=== PATIENT | female | born 1960 | race Caucasian/White ===

== ENCOUNTER 2020-03-27 14:21 | Emergency (ER) | payer OTHER ==
[~2020-03-27] VITALS: Ht 165.1 cm; Wt 83.9 kg
[~2020-03-27 14:21] MED LIST: ACYC400; Ambien10 MG PO; Antivert25 MG PO; LOMAIRA8 MG PO; PSEU120ER PO; THYR60; TOPI100; Vistaril50 MG PO
[2020-03-27] MEDS ORDERED: ZOLPIDEM TART12.5 MG PO (15:07)
[2020-03-27] MEDS ORDERED: EUTHYROX50 MC1 PO (15:33)
[2020-03-27] MEDS ORDERED: PROG100 PO (15:33)
[2020-03-27] MEDS ORDERED: Aspir 8181 MG PO (16:28)
[2020-03-27] MEDS ORDERED: VALA500 PO (16:28)
[2020-03-27 16:50] LABS: International Normalized Ratio 1.01; Prothrombin Time Results 10.8 Sec (9.7-11.5)
[2020-03-27] MEDS ORDERED: XARELTO20 MG PO (17:22)
== END 2020-03-27 17:48 | disposition home or self-care (01) ==
LOC: ER 14:21
PROVIDERS: Physician Assistant
DX: I26.99 Other pulmonary embolism without acute cor pulmonale (principal); I82.401 Acute embolism and thrombosis of unspecified deep veins of right lower extremity; Z88.0 Allergy status to penicillin; Z88.8 Allergy status to other drugs, medicaments and biological substances; Z88.6 Allergy status to analgesic agent; Z86.73 Personal history of transient ischemic attack (TIA), and cerebral infarction without residual deficits
CPT/HCPCS: 36415; 71260; 83880; 84484; 85610; 85730; 93971; 99285-25; Q9967

== ENCOUNTER 2020-05-10 16:03 | Emergency (ER) | payer OTHER ==
[~2020-05-10] VITALS: Ht 165.1 cm; Wt 81.7 kg
[~2020-05-10 16:03] MED LIST changes: +Aspir 8181 MG PO; +EUTHYROX50 MC1 PO; +PROG100 PO; +VALA500 PO; +XARELTO20 MG PO; +ZOLPIDEM TART12.5 MG PO
[2020-05-10] MEDS ORDERED: XARELTO20 MG PO (16:21)
[2020-05-10 16:50] LABS: BASOPHILS ABSOLUTE AUTO 0.02 K/mm3 (0.00-0.23); BASOPHILS PERCENT AUTO 0 % (0-2); EOSINOPHILS ABSOLUTE AUTO 0.03 K/mm3 (0.00-0.68); EOSINOPHILS PERCENT AUTO 0 % (0-6); Hematocrit 45.3 % (33.0-51.0); Hemoglobin 14.8 g/dL (11.5-16.0); IMMATURE GRAN ABSOLUTE AUTO 0.02 K/mm3 (0.00-0.10); IMMATURE GRAN PERCENT AUTO 0 % (0-1); LYMPHOCYTES ABSOLUTE AUTO 1.79 K/mm3 (0.84-5.20); LYMPHOCYTES PERCENT AUTO 22 % (21-46); MONOCYTES ABSOLUTE AUTO 0.59 K/mm3 (0.16-1.47); MONOCYTES PERCENT AUTO 7 % (4-13); Mean Corpuscular HGB 32.6 pg (26.0-34.0); Mean Corpuscular HGB Conc 32.7 g/dL (31.5-36.5); Mean Corpuscular Volume 100 fL (80-100); Mean Platelet Volume 9.3 fL (9.1-12.4); NEUTROPHILS ABSOLUTE AUTO 5.59 K/mm3 (1.96-9.15); NEUTROPHILS PERCENT AUTO 70 % (41-73); Platelet Count 253 K/mm3 (150-400); RDW Coefficient Variation 12.3 % (11.7-14.2); RDW Standard Deviation 45.4 fL (35.1-46.3); Red Blood Cell Count 4.54 M/mm3 (3.80-5.20); White Blood Cell Count 8.04 K/mm3 (4.00-11.30)
[2020-05-10 17:11] LABS: Alanine Aminotransfer (ALT/SGP 25 U/L (12-78); Albumin/Globulin Ratio 1.1 (0.8-1.8); Alk Phos 81 U/L (50-136); Anion Gap 6 mmol/L (6-16); Aspartate Aminotrans (AST/SGOT 12 U/L (12-37); Bilirubin, Total 0.5 mg/dL (0.1-1.0); Blood Urea Nitrogen 17 mg/dL (8-24); Bun/Creatinine Ratio 24.8 (12.0-20.0); CO2, Blood 26 mmol/L (21-32); Calcium, Blood 9.3 mg/dL (8.5-10.1); Chloride, Blood 105 mmol/L (98-108); Creatinine, Blood 0.69 mg/dL (0.40-1.00); Globulin, Blood 3.5 g/dL (2.2-4.0); Glomerular Filtration Rate >60 (60-); Glucose, Blood 110 mg/dL (70-99); Potassium, Blood 3.8 mmol/L (3.5-5.5); Sodium, Blood 137 mmol/L (136-145); Total Protein, Blood 7.5 g/dL (6.4-8.2); Troponin I <0.015 ng/mL (0.000-0.040)
== END 2020-05-10 19:13 | disposition home or self-care (01) ==
LOC: ER 16:03
PROVIDERS: Physician Assistant
DX: R07.9 Chest pain, unspecified (principal); R06.00 Dyspnea, unspecified; Z86.711 Personal history of pulmonary embolism; Z88.0 Allergy status to penicillin; Z88.2 Allergy status to sulfonamides; Z88.8 Allergy status to other drugs, medicaments and biological substances; Z79.01 Long term (current) use of anticoagulants
CPT/HCPCS: 71046; 71260; 80053; 84484; 85025; 93005; 93010; 99284-25; Q9967

== ENCOUNTER 2023-01-11 15:27 | Emergency (ER) | payer OTHER ==
[~2023-01-11] VITALS: Ht 165.1 cm; Wt 90.7 kg
[2023-01-11 15:42] VITALS: BP 156/102
== END 2023-01-11 19:09 | disposition home or self-care (01) ==
LOC: ER 15:27
DX: K41.90 Unilateral femoral hernia, without obstruction or gangrene, not specified as recurrent (principal); D68.9 Coagulation defect, unspecified; Z79.01 Long term (current) use of anticoagulants; Z88.0 Allergy status to penicillin; Z88.2 Allergy status to sulfonamides; Z88.8 Allergy status to other drugs, medicaments and biological substances
CPT/HCPCS: 93971; 99283-25